=== PATIENT | male | born 1975 | race Caucasian/White ===

== ENCOUNTER 2019-06-02 08:12 | Emergency (ER) | payer BC ==
[~2019-06-02] VITALS: Ht 167.6 cm; Wt 90.7 kg
[2019-06-02 08:17] VITALS: BP 134/84
== END 2019-06-02 09:34 | disposition home or self-care (01) ==
LOC: MED 08:12
DX: S61.012A Laceration without foreign body of left thumb without damage to nail, initial encounter (principal); X58.XXXA Exposure to other specified factors, initial encounter; Y93.89 Activity, other specified; Y92.89 Other specified places as the place of occurrence of the external cause; Y99.8 Other external cause status
CPT/HCPCS: 90471; 90715; 99283